=== PATIENT | female | born 1985 | race Caucasian/White ===

== ENCOUNTER → 2019-05-23 | Outpatient (CLI) | payer BC ==
--- NOTE | 2019-05-23 12:55 | RAD ---
Right lower extremity venous real time grayscale, color and spectral duplex ultrasound was performed. History: Right leg edema Comparison: None The right common femoral, femoral, and popliteal veins demonstrate anechoic lumina, full compressibility, augmentable waveforms, and cephalad color Doppler flow. The posterior tibial are also patent. Normal flow is also seen in the cephalad portion of the saphenous vein. Impression: No evidence of DVT in the right lower extremity. Electronically signed by: Hernando Morse MD (05/23/2019 12:52 PM) [id number]
== END | disposition home or self-care (01) ==
LOC: US 12:03
PROVIDERS: ATTEND Family Medicine
DX: R60.0 Localized edema (principal)
CPT/HCPCS: 93971